=== PATIENT | male | born 1945 | race Caucasian/White ===

== ENCOUNTER 2018-02-07 09:11 | Emergency (ER) | payer OTHER, MEDICARE ==
[~2018-02-07] VITALS: Ht 172.7 cm; Wt 95.2 kg
[2018-02-07 09:25] LABS: Calcium, Ionized (POC) 1.17 mmol/L (1.10-1.46); Chloride (POC) 102 mmol/L (98-108); Glucose (ISTAT POC) 228 mg/dL (70-99); Hemoglobin (POC) 14.6 g/dL (13.5-17.5); Potassium (POC) 3.1 mmol/L (3.5-5.5); Sodium (POC) 138 mmol/L (135-148); Total CO2 (POC) 24 mmol/L (21-32)
[2018-02-07 09:53] LABS: BASOPHILS ABSOLUTE AUTO 0.08 K/mm3 (0.00-0.23); BASOPHILS PERCENT AUTO 1 % (0-2); EOSINOPHILS ABSOLUTE AUTO 0.43 K/mm3 (0.00-0.68); EOSINOPHILS PERCENT AUTO 3 % (0-6); Hematocrit 41.9 % (37.0-53.0); Hemoglobin 13.4 g/dL (13.5-17.5); IMMATURE GRAN ABSOLUTE AUTO 0.16 K/mm3 (0.00-0.10); IMMATURE GRAN PERCENT AUTO 1 % (0-1); LYMPHOCYTES ABSOLUTE AUTO 3.99 K/mm3 (0.84-5.20); LYMPHOCYTES PERCENT AUTO 26 % (21-46); MONOCYTES ABSOLUTE AUTO 1.15 K/mm3 (0.16-1.47); MONOCYTES PERCENT AUTO 7 % (4-13); Mean Corpuscular HGB 29.9 pg (26.0-34.0); Mean Corpuscular Volume 94 fL (80-100); Mean Platelet Volume 8.7 fL (9.1-12.4); NEUTROPHILS ABSOLUTE AUTO 9.72 K/mm3 (1.96-9.15); NEUTROPHILS PERCENT AUTO 63 % (41-73); Platelet Count 341 K/mm3 (150-400); RDW Coefficient Variation 14.2 % (11.7-14.2); RDW Standard Deviation 49.1 fL (35.1-46.3); Red Blood Cell Count 4.48 M/mm3 (4.30-5.90); White Blood Cell Count 15.53 K/mm3 (4.00-11.30)
[2018-02-07 10:06] LABS: Alanine Aminotransfer (ALT/SGP 40 U/L (12-78); Albumin, Blood 3.5 g/dL (3.4-5.0); Albumin/Globulin Ratio 0.9 (0.8-1.8); Alk Phos 120 U/L (50-136); Anion Gap 11 mmol/L (6-16); Aspartate Aminotrans (AST/SGOT 31 U/L (12-37); Bilirubin, Total 0.5 mg/dL (0.1-1.0); Blood Urea Nitrogen 17 mg/dL (8-24); CO2, Blood 23 mmol/L (21-32); Calcium, Blood 8.5 mg/dL (8.5-10.1); Chloride, Blood 105 mmol/L (98-108); Globulin, Blood 3.8 g/dL (2.2-4.0); Glomerular Filtration Rate >60 (60-); Glucose, Blood 221 mg/dL (70-99); Potassium, Blood 3.1 mmol/L (3.5-5.5); Sodium, Blood 139 mmol/L (136-145); Total Protein, Blood 7.3 g/dL (6.4-8.2); Troponin I <0.015 ng/mL (0.000-0.040)
[2018-02-07 10:11] LABS: Prothrombin Time Results 46.6 Sec (9.7-11.5)
[2018-02-07 10:13] LABS: International Normalized Ratio 4.95
[2018-02-07] MEDS ORDERED: ZOLP5 PO (10:26)
[2018-02-07] MEDS ORDERED: ASPI81CH PO (10:26)
[2018-02-07] MEDS ORDERED: Oxycodone HCl20 M1 PO (10:27)
[2018-02-07] MEDS ORDERED: FISH OIL 1,0001 EAC2 PO (10:27)
[2018-02-07] MEDS ORDERED: WARF5 PO (10:27)
[2018-02-07] MEDS ORDERED: FENO48 PO (10:28)
[2018-02-07] MEDS ORDERED: ALLO300 PO (10:28)
[2018-02-07] MEDS ORDERED: FINA5 PO (10:28)
[2018-02-07] MEDS ORDERED: AMLO5 PO (10:28)
[2018-02-07] MEDS ORDERED: LOSA50 PO (10:29)
[2018-02-07] MEDS ORDERED: METO25 PO (10:29)
== END 2018-02-07 10:42 | disposition short-term general hospital (02) ==
LOC: ER 09:11
PROVIDERS: Emergency Medicine
DX: S00.03XA Contusion of scalp, initial encounter (principal); I10 Essential (primary) hypertension; G81.94 Hemiplegia, unspecified affecting left nondominant side; Z88.5 Allergy status to narcotic agent; Z79.01 Long term (current) use of anticoagulants; Z79.899 Other long term (current) drug therapy; Z79.82 Long term (current) use of aspirin; W01.198A Fall on same level from slipping, tripping and stumbling with subsequent striking against other object, initial encounter
CPT/HCPCS: 36415; 36430; 51702; 70450; 80047; 80053; 84484; 85014; 85025; 85610; 86850; 86900; 86901; 93005; 93010; 96365; 96375; 99285-25; C9132; J3010; J3430; P9059

== ENCOUNTER 2018-05-02 16:05 | Emergency (ER) | payer MEDICARE ==
[~2018-05-02] VITALS: Ht 175.3 cm; Wt 79.4 kg
[~2018-05-02 16:05] MED LIST: ALLO300 PO; AMLO5 PO; ASPI81CH PO; FENO48 PO; FINA5 PO; FISH OIL 1,0001 EAC2 PO; LOSA50 PO; METO25 PO; Oxycodone HCl20 M1 PO; WARF5 PO; ZOLP5 PO
[2018-05-02] MEDS ORDERED: TRAZ50 PO (16:16)
[2018-05-02 17:10] LABS: BASOPHILS ABSOLUTE AUTO 0.06 K/mm3 (0.00-0.23); BASOPHILS PERCENT AUTO 1 % (0-2); EOSINOPHILS ABSOLUTE AUTO 0.42 K/mm3 (0.00-0.68); EOSINOPHILS PERCENT AUTO 3 % (0-6); Hematocrit 39.3 % (37.0-53.0); Hemoglobin 11.9 g/dL (13.5-17.5); IMMATURE GRAN ABSOLUTE AUTO 0.04 K/mm3 (0.00-0.10); IMMATURE GRAN PERCENT AUTO 0 % (0-1); LYMPHOCYTES ABSOLUTE AUTO 1.93 K/mm3 (0.84-5.20); LYMPHOCYTES PERCENT AUTO 15 % (21-46); MONOCYTES ABSOLUTE AUTO 1.25 K/mm3 (0.16-1.47); MONOCYTES PERCENT AUTO 10 % (4-13); Mean Corpuscular HGB 24.3 pg (26.0-34.0); Mean Corpuscular HGB Conc 30.3 g/dL (31.5-36.5); Mean Corpuscular Volume 80 fL (80-100); Mean Platelet Volume 8.4 fL (9.1-12.4); NEUTROPHILS ABSOLUTE AUTO 9.09 K/mm3 (1.96-9.15); NEUTROPHILS PERCENT AUTO 71 % (41-73); Platelet Count 545 K/mm3 (150-400); RDW Coefficient Variation 14.6 % (11.7-14.2); RDW Standard Deviation 42.8 fL (35.1-46.3); Red Blood Cell Count 4.89 M/mm3 (4.30-5.90); White Blood Cell Count 12.79 K/mm3 (4.00-11.30)
[2018-05-02 18:09] LABS: Alanine Aminotransfer (ALT/SGP 19 U/L (12-78); Albumin/Globulin Ratio 0.6 (0.8-1.8); Alk Phos 156 U/L (50-136); Anion Gap 4 mmol/L (6-16); Aspartate Aminotrans (AST/SGOT 9 U/L (12-37); Bilirubin, Total 0.3 mg/dL (0.1-1.0); Blood Urea Nitrogen 16 mg/dL (8-24); Bun/Creatinine Ratio 38.9 (12.0-20.0); CO2, Blood 33 mmol/L (21-32); Calcium, Blood 9.7 mg/dL (8.5-10.1); Chloride, Blood 98 mmol/L (98-108); Creatinine, Blood 0.41 mg/dL (0.60-1.20); Globulin, Blood 5.3 g/dL (2.2-4.0); Glomerular Filtration Rate >60 (60-); Glucose, Blood 134 mg/dL (70-99); Potassium, Blood 3.5 mmol/L (3.5-5.5); Sodium, Blood 135 mmol/L (136-145); Total Protein, Blood 8.3 g/dL (6.4-8.2)
[2018-05-02 18:57] LABS: Source, Urine Clean Catch
[2018-05-02 19:05] LABS: Appearance, Urine Hazy (Clear); Bilirubin, Urine Neg (Neg); Blood, Urine 5+ (Neg); Color, Urine Yellow (P-Yellow); Glucose Qualitative, Urine Neg (Neg); Ketones, Urine Neg (Neg); Leukocyte Esterase, Urine 3+ (Neg); Nitrite, Urine Neg (Neg); Protein, Urine 2+ (Neg); Specific Gravity, Urine 1.015 (1.003-1.022); Urobilinogen, Urine NORM (Normal)
[2018-05-02 19:13] LABS: Bacteria Many /hpf; Squamous Epithelial Cells Few /hpf (Few); White Blood Cells, Urine TNTC /hpf (0-5); Yeast/Fungi Urine Few /hpf
[2018-05-02] MEDS ORDERED: CEFP200 PO (20:09)
== END 2018-05-02 22:13 | disposition home or self-care (01) ==
LOC: ER 16:05
PROVIDERS: Emergency Medicine
DX: N39.0 Urinary tract infection, site not specified (principal); L98.499 Non-pressure chronic ulcer of skin of other sites with unspecified severity; Z88.5 Allergy status to narcotic agent; Z79.899 Other long term (current) drug therapy; Z79.01 Long term (current) use of anticoagulants; I10 Essential (primary) hypertension
CPT/HCPCS: 36415; 71046; 80053; 81001; 82947; 85025; 87086; 96365; 99284-25; J0696

== ENCOUNTER 2018-06-06 20:25 | Inpatient (IN) | payer MEDICARE ==
[~2018-06-06] VITALS: Ht 175.3 cm; Wt 91.0 kg
[~2018-06-06 20:25] MED LIST changes: -ALLO300 PO; +ALLO300 PT; +AMLO10 PT; -AMLO5 PO; +CEFP200 PO; -FINA5 PO; +FINA5 PT; +TRAZ50 PT
[2018-06-06 20:49] LABS: BASOPHILS ABSOLUTE AUTO 0.06 K/mm3 (0.00-0.23); BASOPHILS PERCENT AUTO 0 % (0-2); EOSINOPHILS ABSOLUTE AUTO 0.01 K/mm3 (0.00-0.68); EOSINOPHILS PERCENT AUTO 0 % (0-6); Hematocrit 41.3 % (37.0-53.0); Hemoglobin 12.2 g/dL (13.5-17.5); IMMATURE GRAN ABSOLUTE AUTO 0.11 K/mm3 (0.00-0.10); IMMATURE GRAN PERCENT AUTO 1 % (0-1); LYMPHOCYTES ABSOLUTE AUTO 1.24 K/mm3 (0.84-5.20); LYMPHOCYTES PERCENT AUTO 5 % (21-46); MONOCYTES ABSOLUTE AUTO 1.09 K/mm3 (0.16-1.47); MONOCYTES PERCENT AUTO 5 % (4-13); Mean Corpuscular HGB Conc 29.5 g/dL (31.5-36.5); Mean Corpuscular Volume 78 fL (80-100); Mean Platelet Volume 9.1 fL (9.1-12.4); NEUTROPHILS ABSOLUTE AUTO 20.63 K/mm3 (1.96-9.15); NEUTROPHILS PERCENT AUTO 89 % (41-73); Platelet Count 443 K/mm3 (150-400); RDW Coefficient Variation 16.7 % (11.7-14.2); RDW Standard Deviation 46.8 fL (35.1-46.3); Red Blood Cell Count 5.31 M/mm3 (4.30-5.90); White Blood Cell Count 23.14 K/mm3 (4.00-11.30)
[2018-06-06 21:09] LABS: Alanine Aminotransfer (ALT/SGP 31 U/L (12-78); Albumin, Blood 3.5 g/dL (3.4-5.0); Albumin/Globulin Ratio 0.7 (0.8-1.8); Alk Phos 177 U/L (50-136); Anion Gap 8 mmol/L (6-16); Aspartate Aminotrans (AST/SGOT 14 U/L (12-37); Bilirubin, Total 0.6 mg/dL (0.1-1.0); Blood Urea Nitrogen 19 mg/dL (8-24); Bun/Creatinine Ratio 31.8 (12.0-20.0); CO2, Blood 29 mmol/L (21-32); Calcium, Blood 9.3 mg/dL (8.5-10.1); Chloride, Blood 101 mmol/L (98-108); Glomerular Filtration Rate >60 (60-); Glucose, Blood 183 mg/dL (70-99); Potassium, Blood 3.6 mmol/L (3.5-5.5); Sodium, Blood 138 mmol/L (136-145); Total Protein, Blood 8.5 g/dL (6.4-8.2); Troponin I <0.015 ng/mL (0.000-0.040)
[2018-06-06] MEDS ORDERED: Humalog100 UNIT/3 SC (21:16)
[2018-06-06] MEDS ORDERED: TOUJEO SOL300 UNIT/1 SC (21:17)
[2018-06-06] MEDS ORDERED: Nystop60 GM TOP (21:17)
[2018-06-06] MEDS ORDERED: OXYC5 PO (21:18)
[2018-06-06] MEDS ORDERED: SODIUM CHLORIDE4 ML INH (21:19)
[2018-06-06] MEDS ORDERED: ALBU2.5V5 NEB (21:20)
[2018-06-06] MEDS ORDERED: ACETAMINOP325 MG/10. PT (21:20)
[2018-06-06] MEDS ORDERED: DIPATRL PO (21:22)
[2018-06-06] MEDS ORDERED: PERIDEX15 ML MM (21:22)
[2018-06-06] MEDS ORDERED: CITA10S PT (21:22)
[2018-06-06] MEDS ORDERED: NUTRISOURCE FI1 EACH PT (21:23)
[2018-06-06] MEDS ORDERED: LIDOCAINE HCL4 ML TOP (21:24)
[2018-06-06] MEDS ORDERED: MELA3 PO (21:24)
[2018-06-06] MEDS ORDERED: METO50 PT (21:25)
[2018-06-06] MEDS ORDERED: ONDA4 PT (21:25)
[2018-06-06] MEDS ORDERED: BIOTENE MOIST44.3 ML MM (21:26)
[2018-06-06] MEDS ORDERED: SENNA-TIME S T1 EACH PT (21:26)
[2018-06-06] MEDS ORDERED: B-1100 MG PT (21:27)
[2018-06-06] MEDS ORDERED: OCEAN104 ML (21:27)
[2018-06-06] MEDS ORDERED: WARF5 PT (21:32)
[2018-06-06] MEDS ORDERED: VITAMIN D50000 UNIT PO (21:34)
[2018-06-06] MEDS ORDERED: Transderm-Scop1 EACH TD (21:35)
[2018-06-07 00:58] LABS: International Normalized Ratio 2.46
[2018-06-07 03:14] LABS: Source, Urine Catheter
[2018-06-07 03:18] LABS: Appearance, Urine Cloudy (Clear); Bilirubin, Urine Neg (Neg); Blood, Urine 5+ (Neg); Color, Urine Yellow (P-Yellow); Glucose Qualitative, Urine Neg (Neg); Ketones, Urine Neg (Neg); Leukocyte Esterase, Urine 3+ (Neg); Nitrite, Urine Neg (Neg); Protein, Urine 4+ (Neg); Specific Gravity, Urine 1.015 (1.003-1.022); Urobilinogen, Urine NORM (Normal); pH, Urine 6.5 (5.0-8.0)
[2018-06-07 03:24] LABS: White Blood Cells, Urine TNTC /hpf (0-5)
[2018-06-07 03:25] LABS: Bacteria Many /hpf; Squamous Epithelial Cells Few /hpf (Few)
[2018-06-07 04:52] LABS: BASOPHILS ABSOLUTE AUTO 0.05 K/mm3 (0.00-0.23); BASOPHILS PERCENT AUTO 0 % (0-2); EOSINOPHILS PERCENT AUTO 0 % (0-6); Hematocrit 39.4 % (37.0-53.0); Hemoglobin 11.6 g/dL (13.5-17.5); IMMATURE GRAN ABSOLUTE AUTO 0.14 K/mm3 (0.00-0.10); IMMATURE GRAN PERCENT AUTO 1 % (0-1); LYMPHOCYTES ABSOLUTE AUTO 0.81 K/mm3 (0.84-5.20); LYMPHOCYTES PERCENT AUTO 3 % (21-46); MONOCYTES PERCENT AUTO 5 % (4-13); Mean Corpuscular HGB 22.6 pg (26.0-34.0); Mean Corpuscular HGB Conc 29.4 g/dL (31.5-36.5); Mean Corpuscular Volume 77 fL (80-100); Mean Platelet Volume 9.3 fL (9.1-12.4); NEUTROPHILS ABSOLUTE AUTO 22.62 K/mm3 (1.96-9.15); NEUTROPHILS PERCENT AUTO 91 % (41-73); Platelet Count 405 K/mm3 (150-400); RDW Coefficient Variation 16.9 % (11.7-14.2); RDW Standard Deviation 46.3 fL (35.1-46.3); Red Blood Cell Count 5.14 M/mm3 (4.30-5.90); White Blood Cell Count 24.82 K/mm3 (4.00-11.30)
--- NOTE | 2018-06-07 05:03 | NUR ---
NEW ORDER FOR PAIN MEDICATION. PT'S CALLED TO REPORT THAT THE ROXICODONE THAT HAD BEEN ADMINISTERED AT AROUND 0300 OF THIS SHIFT WAS NOT EFFECTIVE ENOUGH TO RELIEVE THE PT'S PAIN. SHE INSISTS THAT HE GET 7.5 MG - 10 MG EVERY FOUR HOURS AT HOME. PT'S REQUESTED THAT THE HOSPITALIST BE CALLED TO GET THE CURRENT PAIN MEDICATION REGIMINE CHANGED. DR BONILLA GAVE A TELEPHONE ORDER "GIVE THEM WHATEVER HE TAKES AT HOME". NO SPECIFIC DOSE WAS GIVEN. WHEN ASKED, THE REQUESTED THE 10 MG BECAUSE "THAT BARELY TOUCHES HIS PAIN". WILL CONTINUE TO MONITOR.
[2018-06-07 05:08] LABS: Anion Gap 6 mmol/L (6-16); Blood Urea Nitrogen 16 mg/dL (8-24); Bun/Creatinine Ratio 29.7 (12.0-20.0); CO2, Blood 29 mmol/L (21-32); Calcium, Blood 9.5 mg/dL (8.5-10.1); Chloride, Blood 104 mmol/L (98-108); Creatinine, Blood 0.54 mg/dL (0.60-1.20); Glomerular Filtration Rate >60 (60-); Glucose, Blood 209 mg/dL (70-99); Potassium, Blood 3.6 mmol/L (3.5-5.5); Sodium, Blood 139 mmol/L (136-145)
--- NOTE | 2018-06-07 06:28 | NUR ---
VSS, AFEBRILE, A/O, PT ARRIVED ON THE UNIT VIA STRETCHER, REPORT RECEIVED FROM TERRY BUCKLEY IN ED. PT HAS A SACRAL DECUB CBD. PT HAD A WOUND VAC UNTIL YESTERDAY, WHEN REMOVED IT. PT C/O PAIN, N/V, EMESIS X 4, PT MEDICATED PER ORDER W/OUT SIGNIFICANT RELIEF, C/O LACK OF RELIEF FOR PT'S PAIN, AND HIS MEDICATION WAS CHANGED PER ORDER, EGG CRATE MATTRESS PLACED ON BED PER ORDER, ALL MEDS/NUTRITION GOES THRU THE G TUBE, PT IS NPO, PT HAS A CRANIAL DEFECT S/P NEUROLOGICAL SURGER FOLLOWING CVA LAST JANUARY, PT WEARS HELMENT TO PROTECT HIS BRAIN, IS VERY INVOLVED IN PT CARE AND INSISTENT THAT EVERYTHING BE HER WAY. PT'S SACRAL DRESSING WAS CHANGED IN THE EARLY HOURS TODAY BECAUSE THE REMOVED THE OLD DRESSING. WILL REPORT TO ON-COMING SHIFT.
--- NOTE | 2018-06-07 17:08 | NUR ---
PT AOX3 AND COOPERATIVE OF ALL CARE. PT DOES GET UNOREINTED, AND NAPS OFF AND ON. PT IN BED ALL DAY AND TURNED Q2HRS. PT HAD MEPIPLEX CHANGED ON COCCYX AREA AND REFILLED WOUND TUNNEL. PT TOLERATED WELL. PT HAS HAD CONTINUED NAUSEA AND DR OLIVA NOTIFIED. TONI ORDERED AND THIS HAS BEEN EFFECTIVE. PT HAS ONLY HAD FLUSHES THIS PARTS SALVAGER IS WAITING FOR TUBE FEEDING PIVOT 1.5 TO ARRIVE. CALLED DIETARY TO GET TIME FRAME AND HAD TO LEAVE MESSAGE. PT ALSO CONTINUE TO HAVE PAIN IN HIS COCCYX AND WAS TREATED PER EMAR. WILL CONTINUE TO MONITOR.
[2018-06-08 05:08] LABS: BASOPHILS ABSOLUTE AUTO 0.09 K/mm3 (0.00-0.23); BASOPHILS PERCENT AUTO 0 % (0-2); EOSINOPHILS PERCENT AUTO 0 % (0-6); Hematocrit 40.9 % (37.0-53.0); Hemoglobin 11.9 g/dL (13.5-17.5); IMMATURE GRAN ABSOLUTE AUTO 0.38 K/mm3 (0.00-0.10); IMMATURE GRAN PERCENT AUTO 1 % (0-1); LYMPHOCYTES ABSOLUTE AUTO 0.84 K/mm3 (0.84-5.20); LYMPHOCYTES PERCENT AUTO 2 % (21-46); MONOCYTES ABSOLUTE AUTO 3.12 K/mm3 (0.16-1.47); MONOCYTES PERCENT AUTO 8 % (4-13); Mean Corpuscular HGB 22.8 pg (26.0-34.0); Mean Corpuscular HGB Conc 29.1 g/dL (31.5-36.5); Mean Corpuscular Volume 79 fL (80-100); Mean Platelet Volume 9.3 fL (9.1-12.4); NEUTROPHILS ABSOLUTE AUTO 33.81 K/mm3 (1.96-9.15); NEUTROPHILS PERCENT AUTO 88 % (41-73); Platelet Count 430 K/mm3 (150-400); RDW Coefficient Variation 17.9 % (11.7-14.2); RDW Standard Deviation 48.9 fL (35.1-46.3); Red Blood Cell Count 5.21 M/mm3 (4.30-5.90); White Blood Cell Count 38.24 K/mm3 (4.00-11.30)
[2018-06-08 05:23] LABS: Anion Gap 6 mmol/L (6-16); Blood Urea Nitrogen 25 mg/dL (8-24); Bun/Creatinine Ratio 38.5 (12.0-20.0); CO2, Blood 29 mmol/L (21-32); Calcium, Blood 9.6 mg/dL (8.5-10.1); Chloride, Blood 107 mmol/L (98-108); Creatinine, Blood 0.65 mg/dL (0.60-1.20); Glomerular Filtration Rate >60 (60-); Glucose, Blood 205 mg/dL (70-99); Magnesium, Blood 2.1 mg/dL (1.6-2.4); Phosphorus, Blood 2.5 mg/dL (2.5-4.9); Potassium, Blood 3.4 mmol/L (3.5-5.5); Sodium, Blood 142 mmol/L (136-145)
[2018-06-08 05:28] LABS: Prothrombin Time Results 54.3 Sec (9.7-11.5)
[2018-06-08 05:35] LABS: International Normalized Ratio 6.03
--- NOTE | 2018-06-08 06:29 | NUR ---
VSS. AFEBRILE, A/O, TUBE FEEDING GOING WELL, PT TOLERATING IV ABX W/OUT ADVERSE EFFECTS, PT DID NOT REPORT EMESIS OR NAUSEA ON THIS SHIFT, AT THE BEDSIDE, PT MEDICATED FOR PAIN PER ORDER, PT SLEEPS FOR ONLY A FEW HOURS AT A TIME, WILL REPORT TO ON-COMING SHIFT.
--- NOTE | 2018-06-08 06:35 | NUR ---
CRIT LAB VALUE: PT HAS A CRIT LAB VALUE: INR 6.03, DR BONILLA HAS BEEN NOTIFIED, NO NEW ORDERS NOTED AT THIS TIME.
[2018-06-08 08:42] LABS: PCO2 Arterial 46.2 mmHg (35-45); pH Blood Arterial 7.43 (7.35-7.45)
[2018-06-08 08:43] LABS: PO2 Arterial 45.3 mmHg (80-100)
--- NOTE | 2018-06-08 11:20 | NUR ---
Echocardiogram completed.
--- NOTE | 2018-06-08 12:44 | NUR ---
PT TRANSFERED TO PCU1. STARTED SHIFT SATING LOW 88-89 INCREASE OF O2 DID NOT HELP. RESPIRATORY THERAPY APPLIED OXYMIZER AT 12L PT WAS THEN UP TO 92% O2 LEVEL. DR PORTILLO NOTIFIED AND ORDERED ABG AND CHEST XRAY. PT HAD CRITICAL PO2 OF43.5. DR PORTILLO ORDERED PT TO BE MOVED DOWN TO PCU AND NEW ORDERS WERE PLACED TO EMAR PRIOR TO PT MOVING DOWN. REPORT GIVEN AT BEDSIDE TO TR STEWART.
--- NOTE | 2018-06-08 17:35 | NUR ---
ASSUMED CARE OF PT AT 1200. PT WAS TRANSFERED VIA HOSPITAL BED FROM [facility]. PT IS ON 12 L O2. L LUNG SOUNDS HAVE INSPIRATORY CRACKLE, RIGHT SIDE DIMINISHED. HEART SOUNDS IRREGULAR WITH A MURMUR. SINUS TACH PER MONITOR TEHC. ON TELE. HX OF R CVA. LEFT ARM AND LEG EDEMIS AND ABSENT OF MOVEMENT. PT HAS A PEG TUB. BELLY FIRM AND DISTENDED. STATES THIS IS NORMAL. TUNNELING COCCYX WOUND PACKED WITH A FOAM DRESSING. IV IN R WRIST. SPECH IMPAIRED AND GARBLED. AND DAUGTHER IN ROOM WITH PT. PT PUT ON BIPAP BY RESPIRATORY THERAPIST OFTER O2 DECREASED TO 88. PT O2 HAS INCREASED TO ABOVE 90. PT REPOSTIONED AND PEG TUB INFUSING. STILL IN ROOM WITH FAMILY. PT IS CURRENTLY ON NASAL CANNULA. WILL CONTINUE TO MONITOR. BED IN LOWEST SETTING AND CALL LIGHT WITHIN REACH.
--- NOTE | 2018-06-08 22:25 | NUR ---
UPDATE PATIENT'S TEMP CONTINUES TO BE ELEVATED. PATIENT HAS FAN BLOWING ON HIM, BLANKETS WERE TAKEN OFF EXCEPT FOR A THIN SHEET. HEAT TURNED DOWN IN ROOM AND A COOL WASH CLOTH PLACED ON PATIENT'S FORHEAD. WILL CONTINUE TO MONITOR.
[2018-06-09 03:38] LABS: Base Excess Venous 10.8 mmol/L; Bicarbonate Venous 33.1 mmol/L (24.0-30.0); PCO2 Venous 48.2 mmHg (38-42); PO2 Venous 56.6 mmHg (38-42); pH Blood Venous 7.46 (7.34-7.37)
[2018-06-09 04:15] LABS: BASOPHILS ABSOLUTE AUTO 0.07 K/mm3 (0.00-0.23); BASOPHILS PERCENT AUTO 0 % (0-2); EOSINOPHILS PERCENT AUTO 0 % (0-6); Hemoglobin 11.4 g/dL (13.5-17.5); IMMATURE GRAN ABSOLUTE AUTO 0.77 K/mm3 (0.00-0.10); IMMATURE GRAN PERCENT AUTO 2 % (0-1); LYMPHOCYTES ABSOLUTE AUTO 0.78 K/mm3 (0.84-5.20); LYMPHOCYTES PERCENT AUTO 2 % (21-46); MONOCYTES ABSOLUTE AUTO 2.73 K/mm3 (0.16-1.47); MONOCYTES PERCENT AUTO 6 % (4-13); Mean Corpuscular HGB 22.7 pg (26.0-34.0); Mean Corpuscular HGB Conc 28.5 g/dL (31.5-36.5); Mean Corpuscular Volume 80 fL (80-100); Mean Platelet Volume 9.6 fL (9.1-12.4); NEUTROPHILS ABSOLUTE AUTO 38.76 K/mm3 (1.96-9.15); NEUTROPHILS PERCENT AUTO 90 % (41-73); Platelet Count 340 K/mm3 (150-400); RDW Coefficient Variation 17.4 % (11.7-14.2); RDW Standard Deviation 49.7 fL (35.1-46.3); Red Blood Cell Count 5.02 M/mm3 (4.30-5.90); White Blood Cell Count 43.11 K/mm3 (4.00-11.30)
[2018-06-09 04:35] LABS: Prothrombin Time Results 62.3 Sec (9.7-11.5)
[2018-06-09 04:37] LABS: Anion Gap 5 mmol/L (6-16); Blood Urea Nitrogen 33 mg/dL (8-24); CO2, Blood 33 mmol/L (21-32); Calcium, Blood 9.4 mg/dL (8.5-10.1); Chloride, Blood 107 mmol/L (98-108); Creatinine, Blood 0.65 mg/dL (0.60-1.20); Glomerular Filtration Rate >60 (60-); Glucose, Blood 170 mg/dL (70-99); International Normalized Ratio 7.02; Magnesium, Blood 2.1 mg/dL (1.6-2.4); Phosphorus, Blood 2.1 mg/dL (2.5-4.9); Potassium, Blood 2.9 mmol/L (3.5-5.5); Sodium, Blood 145 mmol/L (136-145)
--- NOTE | 2018-06-09 07:36 | NUR ---
SHIFT SUMMARY PATIENT PLEASENT AND COOPERATIVE THROUGHOUT THE SHIFT. PATIENT APEARED TO SLEEP WELL ON AND OFF THROUGHOUT THE NIGHT. BIPAP IN PLACE FOR MOST OF THE NIGHT WTIH SHORT BREAKS LAST NIGHT FOR ORAL CARE. PATIENT MEDICATED FOR PAIN PER EMAR. PATIENT ANXIOUS AT TIMES BUT WAS EASILY REASURABLE. PATIENT REPOSITIONED Q2H AND PRN FOR COMFORT. PATIENT PROVIDED WITH TYLENOL FOR AN ELEVATED TEMP. PATIENT HAS A WEAK NONPRODUCTIVE COUGH. ASPIRATION RISK PERCAUTIONS IN PLACE. TUBE FEEDINGS RUNNING PER ORDERS. AT THE BEDSIDE AND HELPED TO PROVIDE CARE. REPORT GIVEN TO ONCOMING RN.
--- NOTE | 2018-06-09 07:40 | NUR ---
Update: Notified Dr. Jeffers regarding [facility] INR, pt/family concern that pt has experienced coughing up small amnt of blood this AM, which is a new complaint and request for Dr. Jeffers to round on the pt when possible. Received order for vitamin K to be given. Dr. Jeffers to round on pt when possible.
--- NOTE | 2018-06-09 08:28 | NUR ---
Assumed care of pt at approx 0700. pt on bipap and at bedside. pt in no apparent signs of distress. rt in with pt titrating bipap settings to 14/7 at 60% fio2. tolerating well with o2 saturation at 92 % and breathing unlabored but shallow. pt with critically high inr today at 7.02 and c/o coughing small amount of blood. dr mayorga notified of vss, inr, and pt coughing blood. vitamin k ordered per dr mayorga and given by clarita paul rn. providor to be in this am to see pt per dr mayorga. tube feedings continuous and q4 flush with 250 ml tolerated by pt. will continue to monitor and update as appropriate. see shift assessment for detailed assessment of pt.
--- NOTE | 2018-06-09 13:35 | NUR ---
PERMISSION FOR CARE PT GAVE THIS ASSISTANT FRONT OFFICE MANAGER PERMISSION TO PROVIDE CARE ON 06/09/17. FAMILY WAS PRESENT DURING REQUEST.
--- NOTE | 2018-06-09 18:46 | NUR ---
Shift summary vss and no apparent sign of distress. elevated temp to 100.4. cool washcloth applied to face and covers removed per pt request and for comfort. pt has been more alert today and less anxious per pt family. wound vac applied and draining at 1600 per orders. pt calls appropriately and call light in reach. pt reports adequate pain management with medication from e[facility]. will give report to oncoming noc nurse. will continue to monitor.
[2018-06-10 03:59] LABS: BASOPHILS ABSOLUTE AUTO 0.02 K/mm3 (0.00-0.23); BASOPHILS PERCENT AUTO 0 % (0-2); EOSINOPHILS PERCENT AUTO 0 % (0-6); Hemoglobin 11.2 g/dL (13.5-17.5); IMMATURE GRAN ABSOLUTE AUTO 0.24 K/mm3 (0.00-0.10); IMMATURE GRAN PERCENT AUTO 1 % (0-1); LYMPHOCYTES ABSOLUTE AUTO 0.95 K/mm3 (0.84-5.20); LYMPHOCYTES PERCENT AUTO 4 % (21-46); MONOCYTES ABSOLUTE AUTO 1.57 K/mm3 (0.16-1.47); MONOCYTES PERCENT AUTO 6 % (4-13); Mean Corpuscular HGB 22.4 pg (26.0-34.0); Mean Corpuscular HGB Conc 28.7 g/dL (31.5-36.5); Mean Corpuscular Volume 78 fL (80-100); Mean Platelet Volume 9.9 fL (9.1-12.4); NEUTROPHILS ABSOLUTE AUTO 22.98 K/mm3 (1.96-9.15); NEUTROPHILS PERCENT AUTO 89 % (41-73); Platelet Count 243 K/mm3 (150-400); RDW Coefficient Variation 17.3 % (11.7-14.2); White Blood Cell Count 25.76 K/mm3 (4.00-11.30)
[2018-06-10 04:15] LABS: Anion Gap 4 mmol/L (6-16); Blood Urea Nitrogen 59 mg/dL (8-24); Bun/Creatinine Ratio 75.5 (12.0-20.0); CO2, Blood 33 mmol/L (21-32); Calcium, Blood 9.6 mg/dL (8.5-10.1); Chloride, Blood 109 mmol/L (98-108); Creatinine, Blood 0.78 mg/dL (0.60-1.20); Glomerular Filtration Rate >60 (60-); Glucose, Blood 135 mg/dL (70-99); International Normalized Ratio 1.57; Magnesium, Blood 2.4 mg/dL (1.6-2.4); Phosphorus, Blood 1.7 mg/dL (2.5-4.9); Potassium, Blood 3.9 mmol/L (3.5-5.5); Sodium, Blood 146 mmol/L (136-145)
--- NOTE | 2018-06-10 04:57 | NUR ---
SHIFT SUMMARY PT A&O X4, CALM AND COOPERATIVE. PT HX OF CVA W/ L-SIDED DEFICIT. HX OF R CRANIOTOMY, HELMET AT BEDSIDE. PT FEVER SUCCESSFULLY TX'D W/ FAN, COOL WASH CLOTHS AND TYLENOL THIS SHIFT. BP ELEVATED, TX'D W/ SCHEDULED METOPROLOL PER EMAR. PT LUNG SOUNDS COARSE, DIM IN BASES. SPO2 > 90% ON BIPAP 14/, FIO2 60% MAJORITY OF SHIFT. PT DESAT TO 64% UPON BRIEF REMOVAL OF MASK BY FAMILY FOR COUGHING/SUCTIONING OF BLOODY SPUTUM AT BEGINNING OF SHIFT. MASK REAPPLIED W/ FIO2 TEMPORARILY INCREASED FOR RECOVERY PER RT. NO FURTHER DESAT OR BLOODY SPUTUM THIS SHIFT. PIVOT 1.5 INFUSING VIA PEG TUBE @ GOAL RATE OF 30 MLS/HR W/ 240 ML FLUSH Q4H PER ORDERS. PT RESIDUAL < 10 MLS REINSTILLED THIS SHIFT. HOB REMAINING 45 DEGREES WHILE TF INFUSING PER ORDERS. CONDOM CATH PATENT AND DRAINING TEA COLORED URINE. WOUND VAC TO COCCYX APPLIED 06/09/[address] PILLOWS PLACED FOR COMFORT W/ REPOSITIONING. PT C/O PAIN IN "TOP OF BOTTOM" TX'D PER EMAR. PT ALSO C/O NAUSEA, TX'D PER EMAR. POWER GLIDE IN KINA FLUSHING WELL, NOT DRAWING ADEQUATE BLOOD FOR TESTING. PT IN BED W/ AT BEDSIDE ASSISTING IN CARE. WILL CONTINUE TO MONITOR AND PROVIDE CARE UNTIL REPORT OFF TO DAY SHIFT RN. Q2H REPOSITIONING W/ PILLOWS. HOB ELEVATED 45 DEGREES WHILE TF INFUSING.
--- NOTE | 2018-06-10 07:54 | NUR ---
Bedside handoff completed at 0740 with Lucita Romero RN. of pt is at the bedside. Pt is alert, oriented, and answering questions. No concerns or questions voiced by either of them at this time. The pt states he would really like to get sitting to the side of the bed with physical therapy today.
--- NOTE | 2018-06-10 11:35 | NUR ---
Assessment of the PEG tube: noted that the PEG tube is at 4 cm ruy at the insertion site. No drainage, swelling noted at the site; scant amount of redness noted at the insertion hole, but no erythema. Tube feeding is infusing.
[2018-06-10 12:36] LABS: Vancomycin, Trough 5.9 ug/mL (5.0-10.0)
--- NOTE | 2018-06-10 13:49 | NUR ---
Pt gave consent to this student nurse to provide care on 06/11/18.
--- NOTE | 2018-06-10 16:03 | NUR ---
NEED PHYSICAL THERAPY? The is requesting physical therapy to work with the pt.
--- NOTE | 2018-06-10 18:17 | NUR ---
tube feeding increased from 30cc/hour to 45 at this time. There is no residual.
--- NOTE | 2018-06-10 18:29 | NUR ---
The pt has been alert, and conversant today. Occasionally forgetful, but answering questions appropriately and responding to commands appropriately as well. He has tolerated being off the bipap a few times today. This evening he was wearing oxygen at 15 l/min and had a spo2 of 93% while talking with his and me. Tube feeding was changed to Jevity 1.5, and he has tolerated the first 4 hours of this well; increased the delivery rate to 45 cc/hour from 30 cc/hour after he was found to have no residual. No bowel movement today; CT of the pelvis showed that there is some constipation/rectal impaction, so Miralax was given via the peg tube today. He has been receiving narcotic pain relief for complaints of pain in his coccyx (acute pressure ulcer) and for chronic back pain. Wound vac is in place on his coccyx.
--- NOTE | 2018-06-11 01:10 | NUR ---
ASSUMED CARE OF PATIENT AT APPROXIMATELY 1900 FROM WAGNER Albert RN. PATIENT ALERT AND ORIENTED AT START OF SHIFT; CONFUSED SHORTLY AFTER 2300; REPORTS PATIENT HAS BEEN CONFUSED OFF AND ON THROUGHOUT THE DAY; PATIENT REPORTED TO ANOTHER RN THAT HE THOUGHT HE WAS ON THE AIRPLANE; PATIENT REPORTS UPSET STOMACH AT SAME TIME; MEDICATED PER EMAR WITH ZOFRAN; GOOD RESULTS. PATIENT APPEARS ANXIOUS AT TIMES PULLING BIPAP MASK OFF; MEDICATED FOR ANXIETY. PATIENT REPORTS PAIN IN COCCYX/BACK AREA WHERE PRESSURE ULCER IS; MEDICATED PER EMAR. PATIENT HAS PEG TUBE WITH CONTINUOUS FEEDINGS; MEDICATIONS GIVEN THROUGH TUBE; FLUSED PER ORDER. CONDOM CATH IN PLACE; ATTENDS FOR INCONTINENCE; TURNED FREQUENTLY; REPORTED FROM DAYSHIFT THAT PATIENT CANNOT BE TURNED ONTO RIGHT SIDE; TURNED FROM LEFT TO 45 DEGREE SEMI LEBLANC. SR/ST W/ BBB ON TELE; OXYGEN SATURATION ABOVE 90% ON 15LPM VIA HF NC OR BIPAP 14/7 50% FIO2. PATIENT HAS LEFT SIDED HEMIPLEGIA FROM PRIOR CVA; NUMBNESS IN LEFT SIDE; SWELLING IN LEFT ARM. PG IN KINA S/L. AT BEDSIE; VERY ATTENTIVE; PROVIDES ORAL CARE FOR PATIENT. OTHER FAMILY MEMBERS VISITED FOR THE FIRST HALF OF SHIFT. PATIENT CURRENTLY SLEEPING IN BED; CALL LIGHT IN REACH; BED IN LOWEST POSISTION; WILL CONTINUE TO MONITOR AND ASSESS UNTIL END OF SHIFT.
--- NOTE | 2018-06-11 01:26 | NUR ---
TF RATE INCREASED FROM 45 TO 60 ML/HOUR PER ORDER; MINIMAL RESIDUAL (<10 CC).
[2018-06-11 05:57] LABS: Hematocrit 38.5 % (37.0-53.0); Hemoglobin 11.2 g/dL (13.5-17.5); Mean Corpuscular HGB 22.7 pg (26.0-34.0); Mean Corpuscular HGB Conc 29.1 g/dL (31.5-36.5); Mean Corpuscular Volume 78 fL (80-100); Platelet Count 203 K/mm3 (150-400); RDW Coefficient Variation 17.4 % (11.7-14.2); RDW Standard Deviation 48.7 fL (35.1-46.3); Red Blood Cell Count 4.94 M/mm3 (4.30-5.90); White Blood Cell Count 19.45 K/mm3 (4.00-11.30)
[2018-06-11 06:11] LABS: International Normalized Ratio 1.19; Prothrombin Time Results 12.4 Sec (9.7-11.5)
[2018-06-11 06:17] LABS: Albumin, Blood 2.2 g/dL (3.4-5.0); Anion Gap 2 mmol/L (6-16); Blood Urea Nitrogen 56 mg/dL (8-24); Bun/Creatinine Ratio 68.7 (12.0-20.0); CO2, Blood 37 mmol/L (21-32); Calcium, Blood 9.6 mg/dL (8.5-10.1); Chloride, Blood 111 mmol/L (98-108); Creatinine, Blood 0.82 mg/dL (0.60-1.20); Glomerular Filtration Rate >60 (60-); Glucose, Blood 199 mg/dL (70-99); Phosphorus, Blood 2.4 mg/dL (2.5-4.9); Potassium, Blood 3.9 mmol/L (3.5-5.5); Sodium, Blood 150 mmol/L (136-145)
[2018-06-11] MEDS ORDERED: MIRALAX17 GM (06:21)
[2018-06-11 06:25] LABS: Percent Saturation 5.8 % (20.0-50.0)
--- NOTE | 2018-06-11 11:39 | NUR ---
1100 The pt is awake, conversant, and cooperative. He c/o pain in his wound area on the coccyx, and was given pain medication and repositioned for relief. STates that repositioning helped right away. He worked with physical therapy early this morning. \ Today he has not been wearing the bipap, and I was told by fast food shift supervisor RN that he wore it for about 5 hours last night. This morning he is wearing oxygen at 12 l/min delivery via hi flow nasal cannula. Spo2 seems to be maintaining in the 90s range, although with activity he does have decreased saturations to 86% noted with repositioning during the bedbath and linen change. Lung sounds noted : crackles throughout. He is coughing up white sputum frequently, and self-suctioning his mouth to remove it. HOB elevated at least 30 degrees during tube feeding infusion and medication administration. Left arm is noted to be slightly more swollen than it was yesterday, but I also noted that he had been lying on his left side without the arm being elevated for about 2 hours. Elevated it on a pillow following care this morning. Abdomen noted firm, moderately distended with hypoactive bowel tones. I was told that he had a smear of a bowel movement last night, and this morning he had a small soft formed bowel movement, incontinently. He is getting jevity tube feedings via the PEG tube. Noted insertion is at 4 cm ruy on the tube, phlange in place and no drainage from the site. However, noted that there is a small amount of redness around the hole. This was cleansed with soap and water this morning. Residual amount from stomach was 10 cc this morning before medication administration. Mirilax is being given daily as of yesterday since he is also getting narcotic pain medication regularly. Urine is dark tea color. Condom catheter replaced this morning. No evidence of skin breakdown at the site of condom cath. Heels are elevated on the pillow to prevent pressure on his skin from the bed. No swelling of his lower extremitites noted. His and son have been at the bedside constantly, and are participating in his care, interacting with the patient and helping him with oral suctioning and giving him oral care.
[2018-06-11 12:42] LABS: Vancomycin, Trough 15.8 ug/mL (5.0-10.0)
--- NOTE | 2018-06-11 15:16 | NUR ---
Pain medication administered at approx 1500 in anticipation of wound vac dressing change. and 2 sons are at the bedside with the patient.
[2018-06-12 04:57] LABS: BASOPHILS ABSOLUTE AUTO 0.04 K/mm3 (0.00-0.23); BASOPHILS PERCENT AUTO 0 % (0-2); EOSINOPHILS ABSOLUTE AUTO 0.39 K/mm3 (0.00-0.68); EOSINOPHILS PERCENT AUTO 2 % (0-6); Hemoglobin 10.6 g/dL (13.5-17.5); IMMATURE GRAN ABSOLUTE AUTO 0.15 K/mm3 (0.00-0.10); IMMATURE GRAN PERCENT AUTO 1 % (0-1); LYMPHOCYTES ABSOLUTE AUTO 1.39 K/mm3 (0.84-5.20); LYMPHOCYTES PERCENT AUTO 8 % (21-46); MONOCYTES ABSOLUTE AUTO 2.69 K/mm3 (0.16-1.47); MONOCYTES PERCENT AUTO 15 % (4-13); Mean Corpuscular HGB 22.4 pg (26.0-34.0); Mean Corpuscular HGB Conc 28.6 g/dL (31.5-36.5); Mean Corpuscular Volume 78 fL (80-100); NEUTROPHILS ABSOLUTE AUTO 13.93 K/mm3 (1.96-9.15); NEUTROPHILS PERCENT AUTO 75 % (41-73); Platelet Count 197 K/mm3 (150-400); RDW Coefficient Variation 17.6 % (11.7-14.2); RDW Standard Deviation 49.9 fL (35.1-46.3); Red Blood Cell Count 4.74 M/mm3 (4.30-5.90); White Blood Cell Count 18.59 K/mm3 (4.00-11.30)
[2018-06-12 05:11] LABS: Anion Gap 1 mmol/L (6-16); Blood Urea Nitrogen 53 mg/dL (8-24); Bun/Creatinine Ratio 62.3 (12.0-20.0); CO2, Blood 39 mmol/L (21-32); Calcium, Blood 9.4 mg/dL (8.5-10.1); Chloride, Blood 114 mmol/L (98-108); Creatinine, Blood 0.85 mg/dL (0.60-1.20); Glomerular Filtration Rate >60 (60-); Glucose, Blood 156 mg/dL (70-99); Phosphorus, Blood 3.3 mg/dL (2.5-4.9); Potassium, Blood 3.8 mmol/L (3.5-5.5); Sodium, Blood 154 mmol/L (136-145)
[2018-06-12 05:13] LABS: International Normalized Ratio 1.27; Prothrombin Time Results 13.2 Sec (9.7-11.5)
--- NOTE | 2018-06-12 05:39 | NUR ---
SHIFT SUMMARY PT SLEEPING IN ROOM COMFORTABLY AT THIS TIME. NO ACUTE CHANGES IN STATUS T/O NIGHT. PT WORE CPAP TO MAJORITY OF NIGHT OFF AND ON. TOLERATED FAIR. PT WANTED BREAK FROM MASK AT APPROX 0200 AND HAS BEEN OFF OF MASK SINCE. SATS HAVE REMAINED >92% ON NC. PT SLEEPING COMFORTABLY W/O MASK. RESP EVEN UNLABORED. CONDOM CATH IN PLACE, NO BREAKDOWN NOTED TO SKIN, DRAINING TEA COLORED URINE. NO BM NOTED THIS SHIFT. PT WAS TURNED Q2HRS. WOUND VAC ASSESED AND WNL. PT DID REPORT PAIN DURING NIGHT AND WAS MEDICATED PER EMAR. CALL LIGHT IS IN REACH.
--- NOTE | 2018-06-12 07:17 | NUR ---
Bedside handoff report from Rosa Johnson RN. The pt is awake, taking a breathing tx and holding a flutter valve. His and son are at the bedside. states that the pt had c/o left leg cramping and she was concerned about blood clots. Explained with the supratherapeutic INR a few days ago, and now ongoing coumadin tx with INR of 1.19 yesterday, this is highly unlikely. I assessed the left and right legs, and find no swelling, redness or erythema. The pt does not have pain when the feet are passively flexed and extended.
--- NOTE | 2018-06-12 10:47 | NUR ---
Mic was assisted OOB using the lift sheet and ceiling lift to the recliner chair this morning just before OT Rekha worked with him. Tolerating it very well. SPO2 maintained 91% while on 14 l/min hi [facility] [employer] during the transfer. After working with Rekha the pt is tired, but states he feels good sitting up in the chair. Wound vac alarming with "Low pressure" alarm. Dressing was reinforced with transparent adhesive sheet and pillows placed behind pt's back to relieve any kinks/pressure of the drainage tubing. This seemed to resolve the problem for the time being. PEG tube in place, no changes to the 4 cm insertion placement noted yesterday. Glucerna infusing at 65 cc/hour. No residual found this morning before medication administration done. Condom catheter was changed after transfer to chair. Medium size, draining yellow clear urine. In tubing the urine is medium yellow, but in the collection back it is a dark tea colored. Mic has had no complaints of pain since being up in the chair.
--- NOTE | 2018-06-12 12:04 | NUR ---
Mic c/o "stomach cramps" while sitting up in the recliner chair. Asked if he needs to have a BM, he states yes. Helmet was applied to his head prior to transfer. Using ceiling lift and 3 staff members, the pt was assisted from the recliner to the bed, left side lying position. His is with him. Given some privacy to have BM at this time.
--- NOTE | 2018-06-12 19:30 | NUR ---
ASSUMED CARE PT RESTING IN ROOM COMFORTABLY AT THIS TIME. PER DAY SHIFT PT GOT UP TO CHAIR DURING DAY. PT WAS ALSO MEDICATED WITH LACTULOSE FOR CONSTIPATION. PER DAY SHIFT PT HAD 4 LARGE LOOSE STOOL VOIDS. WOUND VAC DRESSING WAS CHANGED MULTIPLE TIMES D/T SOILED DRESSING. PT HAS HAD NO BM SINCE 1800. ABD IS SOFT AND NON TEMDER AT THIS TIME. RESP EVEN AND TACHYPNIC ON 14L HIGH FLOW NC. PT HAD PT/OT DURING DAY AND O2 NEEDS HAVE INCREASED DURING THE EVENING. PT WORE BIPAP 2 TIMES T/O TOLERATED FAIR. FAMILY IN ROOM VISITING W/ PT. CALL LIGHT IS IN REACH.
--- NOTE | 2018-06-12 19:34 | NUR ---
SUMMARY The pt tolerated being up in the chair for about 2 hours this morning, while wearing oxygen delivered by [employer] [employer] Lung sounds with fine inspiratory crackles, mild dyspnea with minimal activity and hypoxia to 86-87% during activity of repositioning. Abdomen firm and moderately distended this morning, but after receiving a dose of lactulose once he had 4 large liquid bowel movements and his abdomen is soft, non-distended. states that he had not had any significant BM for at least a week until today. Voiding via condom catheter, which was changed 3 times today due to soiling, dislodgment during activity, etc. Wound vac dressing was also changed 4 times today due to soiling and loss of seal. Dr. العلي was here to see the pt conveniently during one of these changes and saw the wound. Redness noted around the lower buttocks,
[2018-06-13 04:47] LABS: BASOPHILS ABSOLUTE AUTO 0.04 K/mm3 (0.00-0.23); BASOPHILS PERCENT AUTO 0 % (0-2); EOSINOPHILS ABSOLUTE AUTO 0.49 K/mm3 (0.00-0.68); EOSINOPHILS PERCENT AUTO 3 % (0-6); Hematocrit 36.7 % (37.0-53.0); Hemoglobin 10.4 g/dL (13.5-17.5); IMMATURE GRAN ABSOLUTE AUTO 0.28 K/mm3 (0.00-0.10); IMMATURE GRAN PERCENT AUTO 2 % (0-1); LYMPHOCYTES ABSOLUTE AUTO 1.84 K/mm3 (0.84-5.20); LYMPHOCYTES PERCENT AUTO 10 % (21-46); MONOCYTES ABSOLUTE AUTO 2.37 K/mm3 (0.16-1.47); MONOCYTES PERCENT AUTO 13 % (4-13); Mean Corpuscular HGB 22.2 pg (26.0-34.0); Mean Corpuscular HGB Conc 28.3 g/dL (31.5-36.5); Mean Corpuscular Volume 78 fL (80-100); Mean Platelet Volume 10.4 fL (9.1-12.4); NEUTROPHILS ABSOLUTE AUTO 13.96 K/mm3 (1.96-9.15); NEUTROPHILS PERCENT AUTO 74 % (41-73); Platelet Count 216 K/mm3 (150-400); RDW Coefficient Variation 17.9 % (11.7-14.2); RDW Standard Deviation 50.9 fL (35.1-46.3); Red Blood Cell Count 4.68 M/mm3 (4.30-5.90); White Blood Cell Count 18.98 K/mm3 (4.00-11.30)
[2018-06-13 05:01] LABS: International Normalized Ratio 1.54; Prothrombin Time Results 15.7 Sec (9.7-11.5)
[2018-06-13 05:03] LABS: Anion Gap 3 mmol/L (6-16); Blood Urea Nitrogen 45 mg/dL (8-24); Bun/Creatinine Ratio 55.9 (12.0-20.0); CO2, Blood 38 mmol/L (21-32); Calcium, Blood 9.3 mg/dL (8.5-10.1); Chloride, Blood 115 mmol/L (98-108); Creatinine, Blood 0.81 mg/dL (0.60-1.20); Glomerular Filtration Rate >60 (60-); Glucose, Blood 131 mg/dL (70-99); Potassium, Blood 3.8 mmol/L (3.5-5.5); Sodium, Blood 156 mmol/L (136-145)
--- NOTE | 2018-06-13 05:49 | NUR ---
SHIFT SUMMARY PT SLEEPING IN ROOM COMFORTABLY AT THIS TIME. NO ACUTE CHANGES IN STATUS T/O NIGHT. PT SLEPT WELL FOR LONG STRETCHES OF NGHT. REPOSITIONED SEVERAL TIMES ON PILLOWS TO FLOAT BACKSIDE OFF OF BED. PT C/O PAIN TWIOCE T/O NIGHT AND WAS MEDICATED PER EMAR. RESP EVEN UNLABORED ON 14L NC, W/ SATS 94%. PT REPORTS COUGHING UP MORE SPUTUM. AT BEDSIDE. CONTINUOUS FEED THROUGH PEG TUBE. IVF INFUSING AT [facility] IN POWERGLIDE. WOUND VAC IN PLACE AND WNL. CONDOM CATH IN PLACE WNL, DRAINING TEA COLORED URINE. CALL LIGHT IN REACH.
--- NOTE | 2018-06-13 08:00 | NUR ---
pt laying in bed awake a/ox3 pleasant and cooperative with care, has a good sense of humor this am. at bedside, lungs are clear in upper carpenter, course, dim in bases, resp even and unlabored, no cough noted, hrr, tele in place running sr to st per monitor, see strip, edema noted to left arm, keeping it elevated. power glide to roula site is clear and patent, btx4, abd flat soft notnender, peg tube in place flushes well, no residule this am, external cath in place draining well, skin has wound vac to coccyx, is total care, and is turned Q2 hrs. call light in reach.
--- NOTE | 2018-06-13 12:30 | NUR ---
ASSUMED CARE OF PATIENT. PT IS RESTING WITH EYES CLOSED. RESP E/U. AT BEDSIDE. CALL LIGHT IN REACH. WILL CONTINUE TO MONITOR.
--- NOTE | 2018-06-13 14:00 | NUR ---
PT REPOSITIONED TO RIGHT SIDE. PT DENIES OTHER NEEDS AT THIS TIME. CALL LIGHT IN REACH, WILL CONTINUE TO MONITOR.
--- NOTE | 2018-06-13 15:44 | NUR ---
PT GIVEN PAIN MEDS. WOULD LIKE TO TRY AND REPOSITION AT THIS TIME FOR COMFORT. AND SON AT BEDSIDE. PT REPOSITIONED TO BACK. MEDS GIVEN. WOUND VAC CHANGED. PHYSCIAL THERAPY AT BEDSIDE TO WORK WITH PATIENT. VSS. PT DENIES OTHER NEEDS AT THIS TIME. CALL LIGHT IN REACH, WILL CONTINUE TO MONITOR.
--- NOTE | 2018-06-13 18:45 | NUR ---
PT HAS HAD A GOOD DAY. PT IS STILL ON 13L OXYGEN VIA NC, NOT ABLE TO TITRATE DOWN. OXYGEN SATURATIONS IN THE LOW 90S. TF CONTINOUS AND WOUND VAC TO SACRUM. NO ACUTE CHANGES THIS SHIFT, WILL REPORT TO RAVIN STEWART.
[2018-06-14 04:28] LABS: BASOPHILS ABSOLUTE AUTO 0.07 K/mm3 (0.00-0.23); BASOPHILS PERCENT AUTO 0 % (0-2); EOSINOPHILS ABSOLUTE AUTO 0.41 K/mm3 (0.00-0.68); EOSINOPHILS PERCENT AUTO 2 % (0-6); Hematocrit 38.4 % (37.0-53.0); Hemoglobin 10.9 g/dL (13.5-17.5); IMMATURE GRAN ABSOLUTE AUTO 0.45 K/mm3 (0.00-0.10); IMMATURE GRAN PERCENT AUTO 2 % (0-1); LYMPHOCYTES ABSOLUTE AUTO 1.81 K/mm3 (0.84-5.20); LYMPHOCYTES PERCENT AUTO 7 % (21-46); MONOCYTES PERCENT AUTO 8 % (4-13); Mean Corpuscular HGB 21.9 pg (26.0-34.0); Mean Corpuscular HGB Conc 28.4 g/dL (31.5-36.5); Mean Corpuscular Volume 77 fL (80-100); NEUTROPHILS PERCENT AUTO 81 % (41-73); NRBC ABSOLUTE 0.02 K/mm3 (0.00-0.02); NRBC Auto 0.1 /100 WBC (0.0-0.2); Platelet Count 264 K/mm3 (150-400); RDW Standard Deviation 49.6 fL (35.1-46.3); Red Blood Cell Count 4.97 M/mm3 (4.30-5.90); White Blood Cell Count 24.74 K/mm3 (4.00-11.30)
[2018-06-14 04:42] LABS: Prothrombin Time Results 19.9 Sec (9.7-11.5)
[2018-06-14 05:02] LABS: Albumin, Blood 2.1 g/dL (3.4-5.0); Anion Gap 5 mmol/L (6-16); Blood Urea Nitrogen 41 mg/dL (8-24); Bun/Creatinine Ratio 53.9 (12.0-20.0); CO2, Blood 36 mmol/L (21-32); Calcium, Blood 9.6 mg/dL (8.5-10.1); Chloride, Blood 113 mmol/L (98-108); Creatinine, Blood 0.76 mg/dL (0.60-1.20); Glomerular Filtration Rate >60 (60-); Glucose, Blood 130 mg/dL (70-99); Phosphorus, Blood 3.1 mg/dL (2.5-4.9); Potassium, Blood 3.6 mmol/L (3.5-5.5); Sodium, Blood 154 mmol/L (136-145)
--- NOTE | 2018-06-14 06:02 | NUR ---
SHIFT SUMMARY PT SLEEPING IN ROOM COMFROTABLY AT THIS TIME. PT WOUND VAC HAD BLOCKAGE IN SYSTEM AT START OF SHIFT. WOUND VAC WAS COMPLETELY REPLACED AND CHANGED, SYSTEM NOW INTACT AND FUNCTIONING WNL. PT WAS REPOSITIONED WITH PILLOWS UNDER BILAT HIPS FOR COMFORT AND TO PREVENT PRESSURE ON WOUND VAC. PT WAS RESTLESS T/O NIGHT HAD A HARD TIME SLEEPING. MEDICATED FOR PAIN AND ANXIETY. RESP EVEN UNLABORED SLIGHTLY TACHY W/ SATS 94%. DENIED CP T/O SHIFT. REMAINS AT BEDSIDE. CONDOM CATH IN PLACE SKIN INTACT, DRAINING TO GRAVITY. PEG TUBE SITE WNL, CONTINUOUS FEEDING, RESIDUALS T/O NIGHT <15ML. IVF INFUSING AT KVO IN POWERGLIDE. CALL LIGHT IS WITHIN REACH.
--- NOTE | 2018-06-14 08:00 | NUR ---
pt awake visiting with family, is a bit tearful this am as son had to leave, lungs are dim t/o, resp even and unlabored, is continuing on high flow 02, sats in the low 90's. resp even and unlabord, occational cough, self suctions with deepti bello given this am, has continuous biox in place, hrr, tele in place running sr to st per monitor, see strip, edema noted to left arm, keeping it elevated on pillows, power glide to roula site is clear and patent, btx4, abd flat soft nontender, has peg tube in place flushes well, no residule this am, has condom cath in place, draining well, dark colored urine, skin has wound vac to coccyx, in place, moves upper arms well, not legs. marcia, call light in reach.
--- NOTE | 2018-06-14 12:15 | NUR ---
pt went down to radiology for a chest ct scan. tolerated well. no acute changes, spouce in room. call light in reach.
--- NOTE | 2018-06-14 12:57 | NUR ---
started nephro for tube feeding at goal rate of 45mls/hr, changed tubing as well. call light in reach.
--- NOTE | 2018-06-14 18:29 | NUR ---
pt resting quietly in bed, asleep in room. no acute changes. RT was able to wean o2 down a bit. call light in reach.
[2018-06-15 05:45] LABS: BASOPHILS ABSOLUTE AUTO 0.06 K/mm3 (0.00-0.23); BASOPHILS PERCENT AUTO 0 % (0-2); EOSINOPHILS ABSOLUTE AUTO 0.46 K/mm3 (0.00-0.68); EOSINOPHILS PERCENT AUTO 2 % (0-6); Hematocrit 38.4 % (37.0-53.0); Hemoglobin 11.1 g/dL (13.5-17.5); IMMATURE GRAN ABSOLUTE AUTO 0.44 K/mm3 (0.00-0.10); IMMATURE GRAN PERCENT AUTO 2 % (0-1); LYMPHOCYTES ABSOLUTE AUTO 1.66 K/mm3 (0.84-5.20); LYMPHOCYTES PERCENT AUTO 6 % (21-46); MONOCYTES ABSOLUTE AUTO 1.49 K/mm3 (0.16-1.47); MONOCYTES PERCENT AUTO 6 % (4-13); Mean Corpuscular HGB 22.2 pg (26.0-34.0); Mean Corpuscular HGB Conc 28.9 g/dL (31.5-36.5); Mean Corpuscular Volume 77 fL (80-100); Mean Platelet Volume 10.7 fL (9.1-12.4); NEUTROPHILS ABSOLUTE AUTO 21.76 K/mm3 (1.96-9.15); NEUTROPHILS PERCENT AUTO 84 % (41-73); Platelet Count 324 K/mm3 (150-400); RDW Coefficient Variation 18.2 % (11.7-14.2); RDW Standard Deviation 49.1 fL (35.1-46.3); Red Blood Cell Count 4.99 M/mm3 (4.30-5.90); White Blood Cell Count 25.87 K/mm3 (4.00-11.30)
[2018-06-15 06:01] LABS: Anion Gap 4 mmol/L (6-16); Blood Urea Nitrogen 40 mg/dL (8-24); Bun/Creatinine Ratio 50.1 (12.0-20.0); CO2, Blood 36 mmol/L (21-32); Calcium, Blood 9.3 mg/dL (8.5-10.1); Chloride, Blood 114 mmol/L (98-108); Glomerular Filtration Rate >60 (60-); Glucose, Blood 84 mg/dL (70-99); Potassium, Blood 3.7 mmol/L (3.5-5.5); Sodium, Blood 154 mmol/L (136-145)
[2018-06-15 06:07] LABS: International Normalized Ratio 2.82; Prothrombin Time Results 27.2 Sec (9.7-11.5)
--- NOTE | 2018-06-15 08:02 | NUR ---
SHIFT SUMMARY PT ALERT T/O SHIFT. PT IN ROOM T/O SHIFT. PT REPOSITIONED T/O SHIFT. ORAL SPONGE OFFERED ON ROUNDING WHILE PT AWAKE. CONT. OXEMETRY IN PLACE; PT DENIED SOB; 10L O2; ORAL WALL SUCTION TO YANKHAUR IN PT REACH. TELEMETRY IN PLACE; SB WITH BBB PER SUPERVISOR INSECTICIDE. WOUND VAC TO COCCYX. PT DENIES CP. SIDE RAILS AND BED ALARM FOR SAFETY. REPORT GIVEN TO DAY SHIFT RN.
--- NOTE | 2018-06-15 14:32 | NUR ---
BEGINING OF SHIFT: ASSUMED CARE OF PT AT 0700, RECEVIED REPORT FROM HERO STEWART. UPON ENTERING ROOM, PT WAS ALERT AND ORIENTED TO SELF AND FAMILY. PT IS ABLE TO RECALL LONG-TERM MEMORIES, HOWEVER IS UNABLE TO RECALL RECENT EVENTS. PT IS ABLE TO FOLLOW DIRECTIONS AND IS SLOW TO RESPONED QUESTIONS. AT START OF SHIFT PT WAS ON 9 L OF OXYGEN VIA HIGH FLOW NC, AND WAS SLOWLY TITRATED TO ROOM AIR. PT SEEMS TO BE TOLERATING IT WELL AND IS DENYING SOB, AND HAS KEPT 02 SATURATION ABOVE 90 PERCENT. PT WAS RUNNING AT [facility] WITH BBB, PER OUTLET MANAGER AND PT DENIES CP AT THIS TIME. PT'S PEG-TUBE IS FREE FROM S/S OF INFECTION AND FLUSHES FREELY WITH GRAVITY, NO OBTRUCTION TO PEG-TUBE NOTED WITH LESS THAN 1ML FOR RESIDUAL. PT HAS A CONDOM CATH IN PLACE, AND URINE IS CLOUDY AND ELIZABETH IN COLOR. PT ALSO HAS A WOUND VAC FOR PRESSURE ULCER ON RIGHT BUTTOCKS AND DRESSING WAS CHANGED TODAY 06/15/2018. PT HAS RECENTLY BEEN TRANSFERED TO SURGICAL UNIT AND REPORT WAS GIVEN TO TERRY KINCAID
--- NOTE | 2018-06-15 16:34 | NUR ---
BEGINING OF SHIFT: ASSUMED CARE OF PT AT 0700, RECEVIED REPORT FROM HERO STEWART. UPON ENTERING ROOM, PT WAS ALERT AND ORIENTED TO SELF AND FAMILY. PT IS ABLE TO RECALL LONG-TERM MEMORIES, HOWEVER IS UNABLE TO RECALL RECENT EVENTS. PT IS ABLE TO FOLLOW DIRECTIONS AND IS SLOW TO RESPONED QUESTIONS. AT START OF SHIFT PT WAS ON 9 L OF OXYGEN VIA HIGH FLOW NC, AND WAS SLOWLY TITRATED TO ROOM AIR. PT SEEMS TO BE TOLERATING IT WELL AND IS DENYING SOB, AND HAS KEPT 02 SATURATION ABOVE 90 PERCENT. PT WAS RUNNING AT [facility] WITH BBB, PER ICU NURSE AND PT DENIES CP AT THIS TIME. PT'S PEG-TUBE IS FREE FROM S/S OF INFECTION AND FLUSHES FREELY WITH GRAVITY, NO OBTRUCTION TO PEG-TUBE NOTED WITH LESS THAN 1ML FOR RESIDUAL. PT HAS A CONDOM CATH IN PLACE, AND URINE IS CLOUDY AND ELIZABETH IN COLOR. PT ALSO HAS A WOUND VAC FOR PRESSURE ULCER ON RIGHT BUTTOCKS AND DRESSING WAS CHANGED TODAY 06/15/2018. PT HAS RECENTLY BEEN TRANSFERED TO SURGICAL UNIT AND REPORT WAS GIVEN TO TERRY KINCAID
--- NOTE | 2018-06-15 16:38 | NUR ---
DRESSING CHANGE - TRANSFER TO SURGICAL FLOOR Assumed care of pt at 0700, with Lizeth BOOTHE. Pt on 9 LPM NC via high flow NC during bedside report. Pt eventually titrated to room air. Pt on continuous oximetry. Tolerated titration to room air well. Whitefoam wound vac dressing changed to coccyx wound. Pt tolerated dressing change well. Pt's spouse in room intermittently throughout day. Pt transferred to room 227 at 1353. Pt remained in same bed for transfer. Pt accompanied by this RN, Lizeth BOOTHE, and pt's spouse. Chart, belongings, and medications transferred with patient.
--- NOTE | 2018-06-15 16:41 | NUR ---
SHIFT SUMMARY PCU TRANSFER TODAY. PT A&OX4, DENIES SOB OR CP, RA, USING FLUTTER VALVE AND I.S., RT TX'S BID; HOB 45*, CONTINUOUS GT TUBE AT 45 MLS/HR; SIT PT STRAIGHT UP WHILE REPOSITIONING, PT CAN ASPIRATE ON OWN SALIVA; CBG AC; CHRONIC PAIN MEDS 10 MG OXY; WOUND VAC ON BUTTOCK. PLAN IS FOR PT TO HAVE HYDA SCAN TOMORROW - NPO AT 0200 - NO TUBE FEEDS OR MEDS. POWERGLIDE KINA, INFUSING ABX PER EMAR. AT BEDSIDE. WCTM & TX PER EMAR UNTIL REPORT GIVEN TO ONCOMING RAVIN RN.
--- NOTE | 2018-06-15 16:46 | NUR ---
NM SCAN Pt's NM scan to take place at 0800 on 06/16. Per Adeola in imaging, pt not to have enteric nutrition or pain medications after 0200 on 06/16.
[2018-06-15 18:51] LABS: Vancomycin, Trough 20.5 ug/mL (5.0-10.0)
[2018-06-16 04:48] LABS: BASOPHILS ABSOLUTE AUTO 0.07 K/mm3 (0.00-0.23); BASOPHILS PERCENT AUTO 0 % (0-2); EOSINOPHILS ABSOLUTE AUTO 0.57 K/mm3 (0.00-0.68); EOSINOPHILS PERCENT AUTO 3 % (0-6); Hematocrit 40.7 % (37.0-53.0); Hemoglobin 11.7 g/dL (13.5-17.5); IMMATURE GRAN ABSOLUTE AUTO 0.34 K/mm3 (0.00-0.10); IMMATURE GRAN PERCENT AUTO 2 % (0-1); LYMPHOCYTES ABSOLUTE AUTO 2.14 K/mm3 (0.84-5.20); LYMPHOCYTES PERCENT AUTO 10 % (21-46); MONOCYTES ABSOLUTE AUTO 1.29 K/mm3 (0.16-1.47); MONOCYTES PERCENT AUTO 6 % (4-13); Mean Corpuscular HGB Conc 28.7 g/dL (31.5-36.5); Mean Corpuscular Volume 76 fL (80-100); Mean Platelet Volume 10.4 fL (9.1-12.4); NEUTROPHILS ABSOLUTE AUTO 17.96 K/mm3 (1.96-9.15); NEUTROPHILS PERCENT AUTO 80 % (41-73); Platelet Count 379 K/mm3 (150-400); RDW Coefficient Variation 18.6 % (11.7-14.2); Red Blood Cell Count 5.33 M/mm3 (4.30-5.90); White Blood Cell Count 22.37 K/mm3 (4.00-11.30)
[2018-06-16 05:09] LABS: Prothrombin Time Results 38.6 Sec (9.7-11.5)
[2018-06-16 05:10] LABS: Anion Gap 4 mmol/L (6-16); Blood Urea Nitrogen 42 mg/dL (8-24); Bun/Creatinine Ratio 50.1 (12.0-20.0); CO2, Blood 34 mmol/L (21-32); Calcium, Blood 9.3 mg/dL (8.5-10.1); Chloride, Blood 112 mmol/L (98-108); Creatinine, Blood 0.84 mg/dL (0.60-1.20); Glomerular Filtration Rate >60 (60-); Glucose, Blood 96 mg/dL (70-99); Potassium, Blood 3.4 mmol/L (3.5-5.5); Sodium, Blood 150 mmol/L (136-145)
[2018-06-16 05:20] LABS: International Normalized Ratio 4.14
--- NOTE | 2018-06-16 07:40 | NUR ---
SHIFT SUMMARY PT ALERT T/O SHIFT. WOUND VAC TO COCCYX. PAIN MANAGED PER EMAR. NOTHING BY TUBE AFTER 0200; NPO ORAL SPONGE SWABS OFFERED T/O SHIFT. PER RYLEY AT 2234, PT LANTUS DECREASED TO 7 UNITS AND LOW SS WITH Q6H CHEM CHECKS STARTING AT 0200 UNTIL CONT. FEEDING WITH FLUSHES RESUMED AFTER HIDA SCAN TODAY. HOB ELEVATED. NO RESIDUAL FOR CONT. TUBE FEEDING WHEN CHECKED AT AND 2114 AND O200. EGG CRATE TO BED; PT REPOSITIONED WHEN AGREEABLE. NOTED SOW WHEN TALKING AND SATS 88-90% ON RA; 1.5L O2 VIA NC FOR SATS OVER 90%; LS DIM AND COARSE; COUGH NOTED. AT BEDSIDE T/O SHIFT. CRIT HIGH INR; DR. HEARD NOTIFED; COUMADIN MANAGED BY PHARM. AM DOSE HELD PER FÉLIX. REPORT GIVEN TO DAY SHIFT RN.
--- NOTE | 2018-06-16 10:20 | NUR ---
PT LEFT FOR IMAGING AT APPROXIMATELY 0950. PT TRANSFERED BY [facility].
--- NOTE | 2018-06-16 10:31 | NUR ---
PT HAS CRANIOTOMY, RIGHT SIDE OF HEAD DEPRESSED. WEARS HELMET FOR TRANSFERS.
--- NOTE | 2018-06-16 17:58 | NUR ---
SHIFT SUMMARY PT ADMITTED FOR PNEUMONIA. BED ALARM IS IN USE. 2 PERSON TRANSFER. USE BLANK LIFT FOR TRANSFER. PT IS ON CONTINUOUS FEEDING VIA PEG TUBE. PT IS A HIGH RISK FOR ASPIRATION. WOUND VAC IN PLACE FOR COCCYX. NO BARRIER CREAM SINCE NYSTATIN POWDER IS IN USE. INR IS ELEVATED (4.14). 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 LEFT SIDED WEAKNESS. CONDOM CATH IN PLACE. PT IS ON O2 @ 2.5L AT TIME OF WRITING. PT HAS A CRANIOTOMY, USES HELMET FOR TRANSFERS. PATIENT'S FAMILY STATES THAT PATIENT'S SPEECH IS SLURRED AND SWOLLEN TONGUE. KEEP HOB AT 30-45 DEGREES AT ALL TIMES UNLESS NECESSARY FOR CARE. PT STATES THAT HE HAS A MECHANICAL HEART VALVE. PT VOMITED MORNING MEDS AND GETS NAUSEA. PATIENT TENDS TO NEED MORE OXYGEN AT NIGHT, MONITOR VITALS NECESSARY. PT HAD HIDA SCAN THIS MORNING.
--- NOTE | 2018-06-16 20:06 | NUR ---
SHIFT SUMMARY PAIN HAS BEEN MANAGED WITH OXY THIS SHIFT, IV FENT GIVEN X1 WHEN PT VOMITED AM MEDS. PT IS A 2-3 PERSON ASSSIST FOR TRANSFERS AND REQUIRES THE BLANK LIFT. FAMILY AT THE BEDSIDE. PT TOLERATING CONTINUOUS FEEDINGS WELL. CONSULT TO DR. ARGUETA WAS CALLED THIS EVENING. VSS. REPORT GIVEN TO RAVIN STEWART.
--- NOTE | 2018-06-17 06:16 | NUR ---
SUMMARY PT REPORTS PAIN MEDS EFFECTIVE. TOLERATING CONTINUOUS PEG FEEDINGS WITH ZERO RESIDUAL. HOB REMAINS UP. WOUND VAC INTACT WITH SX. PT ANXIOUS TO HAVE SWALLOW EVAL TODAY. REMAINS AT BEDSIDE. VERY SUPPORTIVE.
--- NOTE | 2018-06-17 08:50 | NUR ---
therapy in w/pt
[2018-06-17 08:55] LABS: BASOPHILS ABSOLUTE AUTO 0.05 K/mm3 (0.00-0.23); BASOPHILS PERCENT AUTO 0 % (0-2); EOSINOPHILS ABSOLUTE AUTO 0.48 K/mm3 (0.00-0.68); EOSINOPHILS PERCENT AUTO 2 % (0-6); Hematocrit 38.6 % (37.0-53.0); Hemoglobin 10.9 g/dL (13.5-17.5); IMMATURE GRAN ABSOLUTE AUTO 0.16 K/mm3 (0.00-0.10); IMMATURE GRAN PERCENT AUTO 1 % (0-1); LYMPHOCYTES ABSOLUTE AUTO 2.34 K/mm3 (0.84-5.20); LYMPHOCYTES PERCENT AUTO 11 % (21-46); MONOCYTES ABSOLUTE AUTO 1.02 K/mm3 (0.16-1.47); MONOCYTES PERCENT AUTO 5 % (4-13); Mean Corpuscular HGB 22.1 pg (26.0-34.0); Mean Corpuscular HGB Conc 28.2 g/dL (31.5-36.5); Mean Corpuscular Volume 78 fL (80-100); Mean Platelet Volume 10.2 fL (9.1-12.4); NEUTROPHILS ABSOLUTE AUTO 16.71 K/mm3 (1.96-9.15); NEUTROPHILS PERCENT AUTO 81 % (41-73); Platelet Count 414 K/mm3 (150-400); RDW Coefficient Variation 18.9 % (11.7-14.2); RDW Standard Deviation 51.8 fL (35.1-46.3); Red Blood Cell Count 4.93 M/mm3 (4.30-5.90); White Blood Cell Count 20.76 K/mm3 (4.00-11.30)
[2018-06-17 09:11] LABS: Vancomycin, Trough 17.6 ug/mL (5.0-10.0)
[2018-06-17 09:18] LABS: Prothrombin Time Results 43.2 Sec (9.7-11.5)
[2018-06-17 09:41] LABS: International Normalized Ratio 4.69
[2018-06-17 10:19] LABS: Alanine Aminotransfer (ALT/SGP 48 U/L (12-78); Albumin, Blood 2.3 g/dL (3.4-5.0); Albumin/Globulin Ratio 0.4 (0.8-1.8); Alk Phos 237 U/L (50-136); Anion Gap 4 mmol/L (6-16); Aspartate Aminotrans (AST/SGOT 27 U/L (12-37); Bilirubin, Total 0.4 mg/dL (0.1-1.0); Blood Urea Nitrogen 41 mg/dL (8-24); Bun/Creatinine Ratio 45.5 (12.0-20.0); CO2, Blood 33 mmol/L (21-32); Calcium, Blood 9.2 mg/dL (8.5-10.1); Chloride, Blood 114 mmol/L (98-108); Globulin, Blood 5.2 g/dL (2.2-4.0); Glomerular Filtration Rate >60 (60-); Glucose, Blood 149 mg/dL (70-99); Potassium, Blood 3.6 mmol/L (3.5-5.5); Sodium, Blood 151 mmol/L (136-145); Total Protein, Blood 7.5 g/dL (6.4-8.2)
[2018-06-17 12:42] LABS: Performing Lab SYMBIODX; Test Name FLOW
--- NOTE | 2018-06-17 18:13 | NUR ---
SUMMARY PT ADVANCED TO PUREE DIET THIS SHIFT. TUBE FEEDINGS STOPPED AND TO RESUME AT 2000 AND RUN THROUGH NIGHT. NO RESIDUALS WHEN CHECKED T/O SHIFT. MEDICATED PT PER ORDERS T/O SHIFT FOR COCCYX PAIN. REPOSITIONED T/O SHIFT. WORKED W/THERAPY THIS AM. LEFT SIDE PARALYSIS. SPOUSE AT BEDSIDE T/O DAY, ASSISTED PT W/EATING MEALS AND ORAL CARE. HAS GONE HOME FOR EVENING. COVERED ONCE DURING SHIFT FOR CBG OF 145. DID NOT REQUIRE COVERAGE REST OF SHIFT. USES CALL LIGHT APPROPRIATELY. PLEASANT AND COOPERATIVE.
[2018-06-18 06:05] LABS: Hematocrit 38.1 % (37.0-53.0); Hemoglobin 10.7 g/dL (13.5-17.5); Mean Corpuscular HGB 22.1 pg (26.0-34.0); Mean Corpuscular HGB Conc 28.1 g/dL (31.5-36.5); Mean Corpuscular Volume 79 fL (80-100); Platelet Count 432 K/mm3 (150-400); RDW Coefficient Variation 19.9 % (11.7-14.2); RDW Standard Deviation 52.7 fL (35.1-46.3); Red Blood Cell Count 4.84 M/mm3 (4.30-5.90); White Blood Cell Count 18.31 K/mm3 (4.00-11.30)
--- NOTE | 2018-06-18 06:35 | NUR ---
SHIFT SUMMARY PT REMAINS ON FLOOR FOR PNEUMONIA. HIS WOUND VAC TO COCCYX REMAINS UNCHANGED. PT IS ON A PUREED DIET/NECTAR LIQUIDS AND TOLERATING THAT WELL. LUNGS WERE DIM BUT NO CRACKLES AT TIME OF ASSESSMENT. MEDS CRUSHED PER PEG TUBE. PT ALSO RAN 12HR FEEDS, ENCOURAGING MORE INTAKE DURING THE DAY. CONDOM CATH IN PLACE. KAILEY HOSE IN PLACE. UNCLEAR IF PT'S MENTATION IS DIFFERENT LAST NIGHT THAN PREVIOUSLY; HE YELLED OUT A FEW TIMES LAST NIGHT AND SAID HIS "BRAIN WASN'T RIGHT." OTHERWISE COOPERATIVE, ABLE TO MAKE NEEDS KNOWN. FACIAL DROOP AND WEAKNESS UNCHANGED. WILL CTM UNTIL PASS TO NEXT SHIFT.
[2018-06-18 06:51] LABS: International Normalized Ratio 3.49
[2018-06-18 08:13] LABS: Magnesium, Blood 2.4 mg/dL (1.6-2.4)
[2018-06-18 08:37] LABS: Anion Gap 4 mmol/L (6-16); Blood Urea Nitrogen 42 mg/dL (8-24); Bun/Creatinine Ratio 46.4 (12.0-20.0); CO2, Blood 34 mmol/L (21-32); Calcium, Blood 9.1 mg/dL (8.5-10.1); Chloride, Blood 112 mmol/L (98-108); Creatinine, Blood 0.91 mg/dL (0.60-1.20); Glomerular Filtration Rate >60 (60-); Glucose, Blood 135 mg/dL (70-99); Phosphorus, Blood 2.6 mg/dL (2.5-4.9); Potassium, Blood 3.4 mmol/L (3.5-5.5); Sodium, Blood 150 mmol/L (136-145)
--- NOTE | 2018-06-18 13:23 | NUR ---
08 TUBE FEEDINGS NEPRO INFUSING PER PEG TUBE AT 60 ML PER HOUR. NO RESIDUAL. PEG TUBE FLUSHES EASILY
--- NOTE | 2018-06-18 13:25 | NUR ---
1100 TUBE FEEDING TUBE FEEDING COMPLETED, FLUSHED AND DISCONNECTED AT THIS TIME
--- NOTE | 2018-06-18 19:16 | NUR ---
[id number] patients reports she feels patient may have aspirated a small amount while eating dinner. patient with occ loose sounding cough. paged respiratory therapy to request updraft per patients wifes request
--- NOTE | 2018-06-18 19:17 | NUR ---
1840 transfer patient transferred per bed to room 325
--- NOTE | 2018-06-19 05:14 | NUR ---
SHIFT SUMMARY: PT IS ALERT AND ORIENTED. PT IS CALM AND COOPERATIVE WITH CARE. PT CALLS APPROPRIATELY. PT'S IN THE ROOM OVERNIGHT. PT REPORTS R. LEG PAIN, MEDICATING PER EMAR. TUBE FEEDING RUNNING ORDERED. PT HAD BM WHICH SOILED THE WOUND VAC DRESSING, NEW DRESSING APPLIED, CURRENTLY FUNCTIONING WNL. PT REPORTS INTERMITTENT SOB, BREATHING TREATMENTS NEEDED. PT DENIES NAUSEA AND VOMITING. BED IN LOW POSITION, CALL LIGHT WITHIN REACH. WILL REPORT TO DAY NURSE.
[2018-06-19 05:58] LABS: Hematocrit 37.3 % (37.0-53.0); Hemoglobin 10.7 g/dL (13.5-17.5); Mean Corpuscular HGB 22.1 pg (26.0-34.0); Mean Corpuscular HGB Conc 28.7 g/dL (31.5-36.5); Mean Corpuscular Volume 77 fL (80-100); Mean Platelet Volume 10.6 fL (9.1-12.4); Platelet Count 466 K/mm3 (150-400); RDW Coefficient Variation 19.2 % (11.7-14.2); Red Blood Cell Count 4.85 M/mm3 (4.30-5.90); White Blood Cell Count 18.93 K/mm3 (4.00-11.30)
[2018-06-19 06:12] LABS: International Normalized Ratio 2.32; Prothrombin Time Results 22.8 Sec (9.7-11.5)
[2018-06-19 06:23] LABS: Anion Gap 3 mmol/L (6-16); Blood Urea Nitrogen 41 mg/dL (8-24); Bun/Creatinine Ratio 45.4 (12.0-20.0); CO2, Blood 32 mmol/L (21-32); Calcium, Blood 8.9 mg/dL (8.5-10.1); Chloride, Blood 108 mmol/L (98-108); Glomerular Filtration Rate >60 (60-); Glucose, Blood 130 mg/dL (70-99); Magnesium, Blood 2.2 mg/dL (1.6-2.4); Phosphorus, Blood 2.6 mg/dL (2.5-4.9); Potassium, Blood 3.5 mmol/L (3.5-5.5); Sodium, Blood 143 mmol/L (136-145)
--- NOTE | 2018-06-19 17:07 | NUR ---
SHIFT SUMMARY PT AXO, PLEASANT AND COOPERATIVE WITH CARE THOUGH SLOW TO RESPOND. VSS. PT MEDICATED FOR PAIN PER EMAR. WOUND VAC CHANGED WITH CHARGE NURSE PAU HERNANDEZ RN DUE TO OLD DRESSING BECOMING SOILED. PT'S SPOUSE PRESENT IN ROOM THROUGHOUT THE DAY, HAPPILY ASSISTING WITH PT NEEDS. PT DISCONNECTED FROM TUBE FEEDING AT ABOUT 0900. PT TOLERATING ORAL INTAKE WELL. PT'S SPOUSE IS EDUCATED ABOUT ASPIRATION PRECAUTIONS AND SUPERVISES INTAKE CLOSELY. PT DENIES NV AND SOB. PHYSICAL THERAPY AND OCCUPATIONAL THERAPY WORKED WITH PATIENT WHO HAS BEEN UP TO A CHAIR FOR A FEW HOURS SO FAR THIS AFTERNOON. NO ACUTE CHANGES THIS SHIFT. BED IN LOW POSITION, CALL LIGHT WITHIN REACH
--- NOTE | 2018-06-20 04:38 | NUR ---
SHIFT SUMMARY: PT IS ALERT AND ORIENTED. PT IS CALM AND COOPERATIVE WITH CARE. PT CALLS APPROPRIATELY. PT'S IN THE ROOM OVERNIGHT. PT REQUIRES A LIFT FOR TRANSFERS. PT REPORTS RLE PAIN, GAVE PRN OXYCODONE. PT DENIES NAUSEA, VOMITING, AND SOB. WOUND VAC FUNCTIONING WNL. CONDOM CATHETER IN PLACE AND DRAINING YELLOW URINE. PT SLEPT INTERMITTENTLY THROUGHOUT THE NIGHT. NO ACUTE CHANGES OR COMPLICATIONS THIS SHIFT. BED IN LOW POSITION, CALL LIGHT WITHIN REACH. WILL REPORT TO DAY NURSE.
[2018-06-20 04:52] LABS: Bicarbonate Venous 32.3 mmol/L (24.0-30.0); PCO2 Venous 50.5 mmHg (38-42); PO2 Venous 56.8 mmHg (38-42); pH Blood Venous 7.44 (7.34-7.37)
[2018-06-20 05:19] LABS: BASOPHILS ABSOLUTE AUTO 0.06 K/mm3 (0.00-0.23); BASOPHILS PERCENT AUTO 0 % (0-2); EOSINOPHILS ABSOLUTE AUTO 0.41 K/mm3 (0.00-0.68); EOSINOPHILS PERCENT AUTO 3 % (0-6); Hemoglobin 10.5 g/dL (13.5-17.5); IMMATURE GRAN ABSOLUTE AUTO 0.07 K/mm3 (0.00-0.10); IMMATURE GRAN PERCENT AUTO 1 % (0-1); LYMPHOCYTES ABSOLUTE AUTO 1.46 K/mm3 (0.84-5.20); LYMPHOCYTES PERCENT AUTO 11 % (21-46); MONOCYTES ABSOLUTE AUTO 1.03 K/mm3 (0.16-1.47); MONOCYTES PERCENT AUTO 8 % (4-13); Mean Corpuscular HGB 22.2 pg (26.0-34.0); Mean Corpuscular HGB Conc 29.2 g/dL (31.5-36.5); Mean Corpuscular Volume 76 fL (80-100); Mean Platelet Volume 10.4 fL (9.1-12.4); NEUTROPHILS ABSOLUTE AUTO 10.31 K/mm3 (1.96-9.15); NEUTROPHILS PERCENT AUTO 77 % (41-73); Platelet Count 462 K/mm3 (150-400); RDW Coefficient Variation 19.2 % (11.7-14.2); RDW Standard Deviation 50.1 fL (35.1-46.3); Red Blood Cell Count 4.74 M/mm3 (4.30-5.90); White Blood Cell Count 13.34 K/mm3 (4.00-11.30)
[2018-06-20 05:43] LABS: International Normalized Ratio 1.86; Prothrombin Time Results 18.6 Sec (9.7-11.5)
[2018-06-20 06:05] LABS: Anion Gap 3 mmol/L (6-16); Blood Urea Nitrogen 44 mg/dL (8-24); Bun/Creatinine Ratio 45.4 (12.0-20.0); CO2, Blood 34 mmol/L (21-32); Chloride, Blood 107 mmol/L (98-108); Creatinine, Blood 0.97 mg/dL (0.60-1.20); Glomerular Filtration Rate >60 (60-); Glucose, Blood 140 mg/dL (70-99); Potassium, Blood 3.8 mmol/L (3.5-5.5); Sodium, Blood 144 mmol/L (136-145)
[2018-06-20] MEDS ORDERED: JUVEN PACKET1 EACH PT (14:36)
[2018-06-20] MEDS ORDERED: ASCO500 PT (14:37)
[2018-06-20] MEDS ORDERED: K-Dur20 MEQ PO (14:37)
[2018-06-20] MEDS ORDERED: Zinc Sulfate220 M1 PT (14:38)
[2018-06-20] MEDS ORDERED: CLON.5 PT (14:40)
--- NOTE | 2018-06-20 15:00 | NUR ---
wound vac removed and wet to dry drsg applied to coccyx per family request. photos taken and on chart. home health to reapply wound vac tomorrow per patients family
--- NOTE | 2018-06-20 15:48 | NUR ---
DISCHARGE SUMMARY PT DISCHARGED TO HOME. PT LEFT ROOM VIA RECLINING WHEELCHAIR AND TRANSPORTER ESCORT AT 1527. PT SPOUSE PRESENT. DISCHARGE EDUCATION GIVEN TO SPOUSE AT TIME OF DC. EDUCATED ON NEW MEDICATIONS AND INSTRUCTIONS TO FOLLOW UP WITH PCP. SHE AGREES TO FOLLOW UP PER APPOINTMENT. ALL QUESTIONS ANSWERED.
== END 2018-06-20 16:07 | disposition home health service (06) | DRG 871 ==
LOC: ER 20:25 → MEDS 22:47 → SURS 22:47 → MEDS 23:56 → PCU 06-08 11:46 → SURS 06-15 14:06 → MEDS 06-18 19:03 → ENPENDDIS 06-20 11:34 → MEDS 06-20 16:07
PROVIDERS: Emergency Medicine; Internal Medicine; Pharmacist; ADMIT Hospitalist
PROC: 5A09357 Assistance with Respiratory Ventilation, Less than 24 Consecutive Hours, Continuous Positive Airway Pressure (ICD-10-PCS; principal; 2018-06-08)
DX: A41.9 Sepsis, unspecified organism (principal); J96.21 Acute and chronic respiratory failure with hypoxia; J96.22 Acute and chronic respiratory failure with hypercapnia; J69.0 Pneumonitis due to inhalation of food and vomit; I50.31 Acute diastolic (congestive) heart failure; N39.0 Urinary tract infection, site not specified; I69.152 Hemiplegia and hemiparesis following nontraumatic intracerebral hemorrhage affecting left dominant side; D68.32 Hemorrhagic disorder due to extrinsic circulating anticoagulants; E87.0 Hyperosmolality and hypernatremia; Z79.01 Long term (current) use of anticoagulants; Z79.4 Long term (current) use of insulin; E11.9 Type 2 diabetes mellitus without complications; I69.191 Dysphagia following nontraumatic intracerebral hemorrhage; Z87.891 Personal history of nicotine dependence; Z96.653 Presence of artificial knee joint, bilateral; L89.152 Pressure ulcer of sacral region, stage 2; Z95.2 Presence of prosthetic heart valve; E61.1 Iron deficiency; E87.6 Hypokalemia; F32.9 Major depressive disorder, single episode, unspecified
CPT/HCPCS: 36415; 36416; 36600; 71045; 71046; 71250; 72193; 74018; 74230; 78226; 80048; 80053; 80069; 80202; 81001; 82728; 82803; 82947; 83036; 83540; 83550; 83605; 83735; 83880; 84100; 84145; 84295; 84484; 85025; 85027; 85610; 87040; 87086; 88184; 88185; 92526; 92611; 93005; 93010; 93306; 94640; 94660; 94667; 94760; 94762; 96361-59; 96374-59; 96375-59; 97110; 97112; 97162; 97166; 97530; 97535; 99285-25; A9537; J1940; J2185; J2405; J2543; J2550; J3010; J3370; J3480; J7030; J7050; J7070; Q9967